=== PATIENT | female | born 1955 | race Caucasian/White ===

== ENCOUNTER 2016-11-03 13:44 | Inpatient (IN) | payer OTHER ==
[2016-11-03 13:54] VITALS: BMI 20.4
--- NOTE | 2016-11-03 14:49 | HP ---
CIWA Score - CIWA Score Nausea/Vomitin Muscle Tremors: 3 Anxiety: 3 Agitation: 3 Paroxysmal Sweats: 2 Orientation: 0-Oriented Tacttile Disturbances: 2-Mild Itch/Numbness/Burn Auditory Disturbances: 2-Mild Harshness/Frighten Visual Disturbances: 2-Mild Sensitivity Headache: 2-Mild CIWA-Ar Total Score: 22 Admission ROS BHS - HPI Chief Complaint: I NEED HELP TO STOP DRINKING ALCOHOL Allergies/Adverse Reactions: Allergies Allergy/AdvReac Type Severity Reaction Status Date / Time No Known Allergies Allergy Verified 11/03/16 14:12 History of Present Illness: THIS 61 YEARS OLD MALE WITH ALCOHOL DEPENDENCE,WITHDRAWAL SYMPTOM,,LAST DETOX 6 MONTHS AGO,UNKNOWN LOCATION SYNCOPE ALCOHOL RELATED HTN BIPOLAR DISORDER OLD CVA WEIGHT LOSS POSITIVE PPD NEED HELP TO STOP DRINKING Exam Limitations: No Limitations - Ebola screening Have you traveled outside of the country in the last 21 days: No (N) Have you had contact with anyone from an Ebola affected area: No Have you been sick,other than usual withdrawal symptoms: No Do you have a fever: No - Review of Systems Constitutional: Loss of Appetite, Malaise, Night Sweats, Changes in sleep, Weakness, Unintentional Wgt. Loss EENT: reports: Nose Congestion Respiratory: reports: No Symptoms reported Cardiac: reports: No Symptoms Reported GI: reports: Nausea, Vomiting, Indigestion, Abdominal cramping : reports: No Symptoms Reported Musculoskeletal: reports: Back Pain, Muscle Pain Integumentary: reports: Dryness Neuro: reports: Headache, Tremors Endocrine: reports: No Symptoms Reported Hematology: reports: No Symptoms Reported Psychiatric: reports: Depressed (BIPOLAR DISORDER) Patient History - Patient Medical History Hx Asthma: No Hx Chronic Obstructive Pulmonary Disease (COPD): No Hx Cancer: No Hx Cardiac Disorders: No Hx Hypertension: Yes (no meds.) Hx Pacemaker: No HX Cerebrovascular Accident: Yes (IN 2002) Hx Seizures: No Hx Dementia: No Hx Diabetes: No Hx Gastrointestinal Disorders: No Hx Liver Disease: No Hx Genitourinary Disorders: No Hx Sexually Transmitted Disorders: No Hx Renal Disease (ESRD): No Hx Hepatitis C: No Hx Depression: Yes (NO MED) Hx Suicide Attempt: No Hx Bipolar Disorder: Yes Hx Schizophrenia: No Other Medical History: NO SUICIDAL,NO HOMICIDAL - Patient Surgical History Past Surgical History: No - PPD History Previous Implant?: Yes Documented Results: Positive w/o proof Implanted On Prior R Admission?: No PPD to be Administered?: No - Reproductive History Patient is a Female of Child Bearing Age (11 -55 yrs old): No Patient : No - Smoking Cessation Smoking history: Current every day smoker Have you smoked in the past 12 months: Yes Aproximately how many cigarettes per day: 15 Hx Chewing Tobacco Use: No Initiated information on smoking cessation: Yes 'Breaking Loose' booklet given: 11/03/16 - Substance & Tx. History Hx Alcohol Use: Yes Hx Substance Use: No Substance Use Type: Alcohol Hx Substance Use Treatment: Yes (6MONTHS AGO DID NOT RECALL LOCATION) - Substances Abused Alcohol Route: Oral Frequency: Daily Amount used: 1 pint vodka Age of first use: 26 Date of Last Use: 11/02/16 Family Disease History - Family Disease History Family Disease History: Other: Father, Mother Admission Physical Exam [facility] - Vital Signs Vital Signs: Vital Signs - 24 hr 11/03/16 13:51 Temperature 97.1 F L Pulse Rate 79 Respiratory 18 Rate Blood Pressure 167/89 - Physical General Appearance: Yes: Moderate Distress, Irritable, Sweating, Anxious HEENTM: Yes: Nasal Congestion Respiratory: Yes: Lungs Clear Neck: Yes: Within Normal Limits Breast: Yes: Breast Exam Deferred Cardiology: Yes: Within Normal Limits, Regular Rhythm, Regular Rate, S1, S2 Abdominal: Yes: Within Normal Limits, Normal Bowel Sounds, Non Tender, Flat, Soft Genitourinary: Yes: Within Normal Limits Back: Yes: Muscle Spasm Musculoskeletal: Yes: Back pain, Muscle Pain Extremities: Yes: Tremors Neurological: Yes: apartment community manager II-XII NML intact, Fully Oriented, Alert, Motor Strength 5/5 Integumentary: Yes: Dry Lymphatic: Yes: Within Normal Limits - Diagnostic (1) Alcohol dependence with withdrawal, uncomplicated Current Visit: Yes Status: Acute (2) Syncope Current Visit: Yes Status: Acute (3) Old cerebrovascular accident without late effect Current Visit: Yes Status: Acute (4) Hypertension Current Visit: Yes Status: Acute (5) Weight loss Current Visit: Yes Status: Acute (6) Positive PPD Current Visit: Yes Status: Acute Cleared for Admission [facility] - Detox or Rehab [facility] Level of Care: Medically Managed Detox Regimen/Protocol: Librium [facility] Breath Alcohol Content Breath Alcohol Content: 0 Urine Pregancy Test - Result Urine Test Results: Negative- NO Line Present Urine Drug Screen - Results Drug Screen Negative: No Urine Drug Screen Results: TCA-Tricyclic Antidepress
[2016-11-03] MEDS ORDERED: guaiFENesin/D-METHORPHAN HB 10 ML UNIT-DOSE CUPS PO PRN (15:04)
[2016-11-03] MEDS ORDERED: ACETAMINOPHEN 325 MG TABLET (FP) PO PRN (15:04)
[2016-11-03] MEDS ORDERED: MENTHOL/PHENOL 1 EACH UD MM PRN (15:04)
[2016-11-03] MEDS ORDERED: LOPERAMIDE HCL 2 MG CAPSULE PO PRN (15:04)
[2016-11-03] MEDS ORDERED: chlordiazePOXIDE HCL 25 MG CAPSULE PO PRN (15:04)
[2016-11-03] MEDS ORDERED: diphenhydrAMINE HCL 50 MG CAPSULE PO PRN (15:04)
[2016-11-03] MEDS ORDERED: IBUPROFEN 400 MG TABLET (FP) PO PRN (15:04)
[2016-11-03] MEDS ORDERED: MAGNESIUM HYDROX 2400MG/30ML ORAL SUSPENSION 30 ML CUP PO PRN (15:04)
[2016-11-03] MEDS ORDERED: hydrOXYzine PAMOATE 25 MG CAPSULE (FP) PO PRN (15:04)
[2016-11-03] MEDS ORDERED: P-EPHED 60MG/TRIPROLIDI 2.5MG TABLET PO PRN (15:04)
[2016-11-03] MEDS ORDERED: MAGNESIUM CITRATE 300 ML BOTTLE PO PRN (15:04)
[2016-11-03] MEDS ORDERED: MAG HYDROX/AL HYDROX/SIMETH 30 ML UNIT-DOSE CUP PO PRN (15:04)
[2016-11-03] MEDS: chlordiazePOXIDE HCL 25 MG CAPSULE PO SCH ×2 (17:55→22:32)
[2016-11-03] MEDS: NICOTINE 21 MG/24 HOURS TOPICAL PATCH TD SCH (18:09)
[2016-11-03 18:50] LABS: URINE APPEARANCE CLOUDY; URINE BILIRUBIN NEGATIVE (NEGATIVE); URINE BLOOD NEGATIVE (NEGATIVE); URINE COLOR AMBER; URINE GLUCOSE (UA) NEGATIVE (NEGATIVE); URINE KETONE NEGATIVE (NEGATIVE); URINE LEUK ESTERASE NEGATIVE (NEGATIVE); URINE NITRITE NEGATIVE (NEGATIVE); URINE PROTEIN NEGATIVE (NEGATIVE); URINE UROBILINOGEN NEGATIVE E.U./dl (0.2-1.0)
[2016-11-03] MEDS: THIAMINE HCL 100 MG TABLET (FP) PO SCH (22:32)
[2016-11-04] MEDS: chlordiazePOXIDE HCL 25 MG CAPSULE PO SCH ×4 (06:07→22:25)
--- NOTE | 2016-11-04 07:54 | CONSULT ---
[facility] Psychiatric Consult - Data Date of interview: 11/04/16 Admission source: [facility] Identifying data: This is 61 years old german speaking female with no psychiatgric hospitalization history, multiple medical problems, intoxicated with : Alcohol and Nicotine Substance Abuse History: - Smoking Cessation. Smoking history: Current every day smoker. Have you smoked in the past 12 months: Yes. Aproximately how many cigarettes per day: 15. Hx Chewing Tobacco Use: No. Initiated information on smoking cessation: Yes. 'Breaking Loose' booklet given: 11/03/16. - Substance & Tx. History. Hx Alcohol Use: Yes. Hx Substance Use: No. Substance Use Type : Alcohol. Hx Substance Use Treatment: Yes (6MONTHS AGO DID NOT RECALL LOCATION ). - Substances Abused. Alcohol. Route: Oral. Frequency: Daily. Amount used: 1 pint vodka. Age of first use: 26. Date of Last Use: 11/02/16 Medical History: Weight loss history, history of PPD+, HTN, history of CVA, Syncope Psychiatric History: Patient reports no medicatiopons taking prior to admission , reports no past psychiatric history, reportsa insomnia Physical/Sexual Abuse/Trauma History: Denies Additional Comment: Observation. Detox Unit Care Protocol Mental Status Exam - Mental Status Exam Alert and Oriented to: Person Cognitive Function: Fair Patient Appearance: Unkempt Mood: Sad Affect: Flat Patient Behavior: Sedated Speech Pattern: Delayed Voice Loudness: Mildly Soft/Quiet Thought Process: Circumstantial Thought Disorder: Being Controlled Hallucinations: Denies Suicidal Ideation: Denies Homicidal Ideation: Denies Insight/Judgement: Fair Sleep: Difficulty falling asleep Appetite: Weight loss Muscle strength/Tone: Mild Hypotonicity Gait/Station: Shuffling Additional Comments: Observation. Detox Unit Care Protocol Psychiatric Findings - Problem List (Rosie 1, 2,3) (1) Alcohol dependence with withdrawal, uncomplicated Current Visit: Yes Status: Acute (2) Nicotine dependence Current Visit: Yes Status: Acute (3) Drug-induced mood disorder Current Visit: Yes Status: Suspected - Initial Treatment Plan Initial Treatment Plan: Observation. Detox Unit Care Protocol
[2016-11-04] MEDS ORDERED: PRENATAL VITAMINS W/ FOLIC ACID TABLET (FP) PO SCH (10:00)
[2016-11-04 10:08] LABS: MCH 33.7 pg (25.7-33.7); MCHC 33.8 g/dl (32.0-36.0); MEAN CELL VOLUME 99.7 fl (80-96); MEAN PLT VOLUME 9.8 fl (7.5-11.1); PLATELET COUNT 165 K/MM3 (134-434); RDW 13.1 % (11.6-15.6); WHITE BLOOD COUNT 6.8 K/mm3 (4.0-10.0)
[2016-11-04 10:26] LABS: ALBUMIN 3.3 g/dl (3.4-5.0); ALK PHOS 94 U/L (45-117); ANION GAP 7 (8-16); BILIRUBIN,TOTAL 0.7 mg/dL (0.2-1.0); CALCIUM 9.4 mg/dL (8.5-10.1); CO2 31 mmol/L (21-32); CREATININE 0.8 mg/dL (0.55-1.02); GLUCOSE,RANDOM 115 mg/dL (74-106); SGOT/AST 31 U/L (15-37); SGPT/ALT 31 U/L (12-78); TOT PROT 5.5 g/dl (6.4-8.2)
[2016-11-04] MEDS: NICOTINE 21 MG/24 HOURS TOPICAL PATCH TD SCH (10:32)
--- NOTE | 2016-11-04 11:32 | PN ---
[facility] CIWA - CIWA Score Nausea/Vomitin-No Nausea/No Vomiting Muscle Tremors: 3 Anxiety: 4-Mod. Anxious/Guarded Agitation: 3 Paroxysmal Sweats: 3 Orientation: 0-Oriented Tacttile Disturbances: 0-None Auditory Disturbances: 0-None Visual Disturbances: 0-None Headache: 1-Very Mild CIWA-Ar Total Score: 14 S Progress Note (SOAP) Subjective: tired sweats interrupted sleep headache Objective: 11/04/16 11:28 Vital Signs Temperature 97.3 F L 11/04/16 10:32 Pulse Rate 82 11/04/16 10:32 Respiratory Rate 18 11/04/16 10:32 Blood Pressure 158/85 11/04/16 10:32 O2 Sat by Pulse Oximetry (%) Laboratory Tests 11/03/16 11/04/16 11/04/16 17:45 06:30 06:30 WBC 6.8 RBC 4.04 Hgb 13.6 Hct 40.3 MCV 99.7 H MCHC 33.8 RDW 13.1 Plt Count 165 MPV 9.8 Sodium 141 Potassium 4.0 Chloride 103 Carbon Dioxide 31 Anion Gap 7 L BUN 17 Creatinine 0.8 Creat Clearance w eGFR > 60 Random Glucose 115 H Calcium 9.4 Total Bilirubin 0.7 AST 31 ALT 31 Alkaline Phosphatase 94 Total Protein 5.5 L Albumin 3.3 L Urine Color Mari Urine Appearance Cloudy Urine pH 8.0 Ur Specific [place] 1.018 Urine Protein Negative Urine Glucose (UA) Negative Urine Ketones Negative Urine Blood Negative Urine Nitrite Negative Urine Bilirubin Negative Urine Urobilinogen Negative Ur Leukocyte Esterase Negative RPR Titer 11/04/16 06:30 WBC RBC Hgb Hct MCV MCHC RDW Plt Count MPV Sodium Potassium Chloride Carbon Dioxide Anion Gap BUN Creatinine Creat Clearance w eGFR Random Glucose Calcium Total Bilirubin AST ALT Alkaline Phosphatase Total Protein Albumin Urine Color Urine Appearance Urine pH Ur Specific [place] Urine Protein Urine Glucose (UA) Urine Ketones Urine Blood Urine Nitrite Urine Bilirubin Urine Urobilinogen Ur Leukocyte Esterase RPR Titer Nonreactive awake/alert ambulating no acute distress Assessment: 11/04/16 11:31 withdrawal sx Plan: continue detox increase fluids
[2016-11-04] MEDS ORDERED: INFLUENZA VACCINE 45 MCG/0.5 ML (MDV 16-17) IM ONE (12:00)
[2016-11-04] MEDS: THIAMINE HCL 100 MG TABLET (FP) PO SCH (22:25)
[2016-11-05] MEDS: chlordiazePOXIDE HCL 25 MG CAPSULE PO SCH (06:35)
[2016-11-05 07:00] VITALS: BP 127/82; PULSE 66; TEMP 98.8
--- NOTE | 2016-11-05 09:37 | DS ---
[facility] Detox Discharge Summary Admission Date: 11/03/16 Discharge Date: 11/05/16 - History Present History: Alcohol Dependence - Physical Exam Results Vital Signs: Vital Signs Temperature 98.8 F 11/05/16 06:59 Pulse Rate 66 11/05/16 06:59 Respiratory Rate 16 11/05/16 06:59 Blood Pressure 127/82 11/05/16 06:59 O2 Sat by Pulse Oximetry (%) Pertinent Admission Physical Exam Findings: cxr - negative - Treatment Hospital Course: Detox Protocol Followed - Medication Discharge Medications: Ambulatory Orders NK [No Known Home Medication] 11/03/16 - Diagnosis (1) Alcohol dependence with withdrawal, uncomplicated Current Visit: Yes Status: Chronic (2) Hypertension Current Visit: Yes Status: Chronic Qualifiers: Hypertension type: essential hypertension Qualified Code(s): I10 - Essential (primary) hypertension (3) Nicotine dependence Current Visit: Yes Status: Chronic Qualifiers: Nicotine product type: cigarettes Substance use status: uncomplicated Qualified Code(s): F17.210 - Nicotine dependence, cigarettes, uncomplicated (4) Old cerebrovascular accident without late effect Current Visit: Yes Status: Acute (5) Positive PPD Current Visit: Yes Status: Chronic - AMA Did Patient Leave Against Medical Advice: Yes (pt wants to leave does'nt like it here.)
[2016-11-05] MEDS ORDERED: chlordiazePOXIDE 5 MG CAPSULE PO SCH (17:00)
--- NOTE | 2016-11-06 10:18 | EKG ---
Test Reason : Blood Pressure : / mmHG Vent. Rate : 077 BPM Atrial Rate : 077 BPM P-R Int : 162 ms QRS Dur : 072 ms QT Int : 392 ms P-R-T Axes : 062 047 013 degrees QTc Int : 443 ms NORMAL SINUS RHYTHM POSSIBLE LEFT ATRIAL ENLARGEMENT BORDERLINE ECG NO PREVIOUS ECGS AVAILABLE Confirmed by DI RUBIO, JARAD ([id number]) on 11/06/2016 10:17:34 AM Referred By: Confirmed By:JARAD SEVILLA MD
[2016-11-06] MEDS ORDERED: chlordiazePOXIDE HCL 10 MG CAPSULE PO SCH (17:00)
== END 2016-11-05 10:53 | disposition left against medical advice (07) | DRG 770 ==
LOC: YASAS 13:44 → Y6N 14:25
PROVIDERS: ADMIT Internal Medicine; ATTEND Internal Medicine
PROC: HZ2ZZZZ Detoxification Services for Substance Abuse Treatment (ICD-10-PCS; principal; 2016-11-03)
DX: F10.230 Alcohol dependence with withdrawal, uncomplicated (principal); F17.210 Nicotine dependence, cigarettes, uncomplicated; F19.24 Other psychoactive substance dependence with psychoactive substance-induced mood disorder; F31.9 Bipolar disorder, unspecified; I10 Essential (primary) hypertension; R76.11 Nonspecific reaction to tuberculin skin test without active tuberculosis; Z86.73 Personal history of transient ischemic attack (TIA), and cerebral infarction without residual deficits; Z87.898 Personal history of other specified conditions; Z86.79 Personal history of other diseases of the circulatory system
CPT/HCPCS: 36415; 71020-TC; 80053; 81003; 85027; 86593; 93005; 93010

== ENCOUNTER 2018-08-06 15:50 | Inpatient (IN) | payer OTHER ==
[2018-08-06 17:31] VITALS: BMI 18.6
--- NOTE | 2018-08-06 19:02 | HP ---
CIWA Score - CIWA Score Nausea/Vomitin-No Nausea/No Vomiting Muscle Tremors: None Anxiety: 0-No Anxiety, at Ease Agitation: 0-Normal Activity Paroxysmal Sweats: No Perspiration Orientation: 0-Oriented Tacttile Disturbances: 0-None Auditory Disturbances: 0-None Visual Disturbances: 0-None Headache: 0-None Present CIWA-Ar Total Score: 0 Admission ROS BHS - HPI Allergies/Adverse Reactions: Allergies Allergy/AdvReac Type Severity Reaction Status Date / Time No Known Allergies Allergy Verified 11/03/16 14:12 History of Present Illness: pt here requesting detox from etoh use , claims several pints/ day , starts drinking at 10 am , latest use this morning , + tremors if not drinking , denies seizures, blackouts, + falls, latest 2 d ago hit knees . reports use of etoh x > 30 years, states she was referred by social worker assistant at [facility] to this program. utox neg for all juan pablo 0.000 Bp 158/84 pmhx : denies pshx : denies psych : denies tobacco use : 15 /day , requesting nrt w/ patch - Ebola screening Have you traveled outside of the country in the last 21 days: No (N) Have you had contact with anyone from an Ebola affected area: No Have you been sick,other than usual withdrawal symptoms: No Do you have a fever: No - Review of Systems Constitutional: No Symptoms Reported EENT: reports: Other (glasses - reading dentures) Respiratory: reports: No Symptoms reported Cardiac: reports: No Symptoms Reported GI: reports: No Symptoms Reported : reports: No Symptoms Reported Musculoskeletal: reports: No Symptoms Reported Integumentary: reports: Bruising, Other (michael knees abrasions) Neuro: reports: No Symptoms reported Endocrine: reports: No Symptoms Reported Hematology: reports: No Symptoms Reported Psychiatric: reports: Judgement Intact, Orientated x3 Other Systems: Reviewed and Negative Patient History - Patient Medical History Hx Asthma: No Hx Chronic Obstructive Pulmonary Disease (COPD): No Hx Cancer: No Hx Cardiac Disorders: No Hx Hypertension: Yes (no meds.) Hx Pacemaker: No HX Cerebrovascular Accident: Yes (IN 2002) Hx Seizures: No Hx Dementia: No Hx Diabetes: No Hx Gastrointestinal Disorders: No Hx Liver Disease: No Hx Genitourinary Disorders: No Hx Sexually Transmitted Disorders: No Hx Renal Disease (ESRD): No Hx Thyroid Disease: No Hx Human Immunodeficiency Virus (HIV): No (last 2012 negative) Hx Hepatitis C: No Hx Depression: Yes (NO MED) Hx Suicide Attempt: No Hx Bipolar Disorder: No Hx Schizophrenia: No - Patient Surgical History Past Surgical History: No - Smoking Cessation Smoking history: Current every day smoker Have you smoked in the past 12 months: Yes Aproximately how many cigarettes per day: 15 Hx Chewing Tobacco Use: No Initiated information on smoking cessation: No Family Disease History - Family Disease History Family Disease History: Other: Father (alcohol,), Mother (alcohol) Admission Physical Exam S - Vital Signs Vital Signs: Vital Signs - 24 hr 08/06/18 17:29 Temperature 98.9 F Pulse Rate 87 Respiratory 20 Rate Blood Pressure 155/86 - Physical General Appearance: Yes: Within Normal Limits, No Apparent Distress, Nourished, Disheveled HEENTM: Yes: Within Normal Limits, Hearing grossly Normal, Normocephalic, Normal Voice, SHERI, Pharynx Normal, Other (missing teeth) Respiratory: Yes: Chest Non-Tender, Lungs Clear, Normal Breath Sounds, No Respiratory Distress, No Accessory Muscle Use Neck: Yes: No masses,lesions,Nodules, Trachea in good position Cardiology: Yes: Within Normal Limits, Regular Rhythm, Regular Rate Abdominal: Yes: Within Normal Limits, Normal Bowel Sounds, Non Tender, Flat, Soft Back: Yes: Normal Inspection Musculoskeletal: Yes: full range of Motion, Gait Steady, Pelvis Stable Extremities: Yes: Normal Capillary Refill, Normal Inspection, Normal Range of Motion, Non-Tender Neurological: Yes: Within Normal Limits, Fully Oriented, Alert, Motor Strength 5 /5, Normal Mood/Affect, Normal Response Integumentary: Yes: Normal Color, Dry, Warm, Other (knees) - Diagnostic (1) Alcohol dependence with intoxication Current Visit: No Status: Acute Qualifiers: Complication of substance-induced condition: uncomplicated Qualified Code(s ): F10.220 - Alcohol dependence with intoxication, uncomplicated (2) Nicotine dependence Current Visit: No Status: Chronic Qualifiers: Nicotine product type: cigarettes Substance use status: uncomplicated Qualified Code(s): F17.210 - Nicotine dependence, cigarettes, uncomplicated BHS Breath Alcohol Content Breath Alcohol Content: 0 Urine Pregancy Test - Result Urine Test Results: Negative- NO Line Present Urine Drug Screen - Results Drug Screen Negative: Yes
[2018-08-06] MEDS ORDERED: MENTHOL/PHENOL 1 EACH UD MM PRN (19:06)
[2018-08-06] MEDS ORDERED: MAGNESIUM CITRATE 300 ML BOTTLE PO PRN (19:06)
[2018-08-06] MEDS ORDERED: diazePAM 5 MG TABLET PO PRN (19:06)
[2018-08-06] MEDS ORDERED: P-EPHED 60MG/TRIPROLIDI 2.5MG TABLET PO PRN (19:06)
[2018-08-06] MEDS ORDERED: MAG HYDROX/AL HYDROX/SIMETH 30 ML UNIT-DOSE CUP PO PRN (19:06)
[2018-08-06] MEDS ORDERED: IBUPROFEN 400 MG TABLET (FP) PO PRN (19:06)
[2018-08-06] MEDS ORDERED: MAGNESIUM HYDROX 2400MG/30ML ORAL SUSPENSION 30 ML CUP PO PRN (19:06)
[2018-08-06] MEDS ORDERED: ACETAMINOPHEN 325 MG TABLET (FP) PO PRN (19:06)
[2018-08-06] MEDS ORDERED: guaiFENesin/D-METHORPHAN HB 10 ML UNIT-DOSE CUPS PO PRN (19:06)
[2018-08-06] MEDS: THIAMINE HCL 100 MG TABLET (FP) PO SCH (21:17)
[2018-08-06] MEDS: diazePAM 5 MG TABLET PO SCH (21:17)
[2018-08-07] MEDS: diazePAM 5 MG TABLET PO SCH ×3 (06:31→22:52)
[2018-08-07 09:58] LABS: HEMATOCRIT 40.4 % (32.4-45.2); HEMOGLOBIN 13.3 GM/dL (10.7-15.3); MCH 32.2 pg (25.7-33.7); MCHC 32.9 g/dl (32.0-36.0); MEAN PLT VOLUME 10.1 fl (7.5-11.1); PLATELET COUNT 153 K/MM3 (134-434); RBC 4.12 M/mm3 (3.60-5.2); RDW 14.1 % (11.6-15.6); WHITE BLOOD COUNT 5.7 K/mm3 (4.0-10.0)
[2018-08-07] MEDS: NICOTINE 7 MG/24 HOURS TOPICAL PATCH TD SCH (10:30)
[2018-08-07] MEDS: PRENATAL VITAMINS W/ FOLIC ACID TABLET (FP) PO SCH (10:30)
[2018-08-07 11:00] LABS: ALBUMIN 3.3 g/dl (3.4-5.0); ALK PHOS 79 U/L (45-117); ANION GAP 7 MMOL/L (8-16); BILIRUBIN,TOTAL 0.6 mg/dL (0.2-1); BLOOD UREA NITROGEN 20 mg/dL (7-18); CALCIUM 9.2 mg/dL (8.5-10.1); CHLORIDE 106 mmol/L (98-107); CO2 29 mmol/L (21-32); CREATININE 0.6 mg/dL (0.55-1.3); GLUCOSE,RANDOM 122 mg/dL (74-106); POTASSIUM 3.7 mmol/L (3.5-5.1); SGOT/AST 31 U/L (15-37); SGPT/ALT 37 U/L (13-61); SODIUM 142 mmol/L (136-145); TOT PROT 5.4 g/dl (6.4-8.2)
--- NOTE | 2018-08-07 12:22 | PN ---
S CIWA - CIWA Score Nausea/Vomitin-No Nausea/No Vomiting Muscle Tremors: 4-Moderate,w/Arms Extend Anxiety: 3 Agitation: 4-Moderately Restless Paroxysmal Sweats: 3 Orientation: 0-Oriented Tacttile Disturbances: 0-None Auditory Disturbances: 0-None Visual Disturbances: 0-None Headache: 0-None Present CIWA-Ar Total Score: 14 BHS Progress Note (SOAP) Subjective: sweats shakes interrupted sleep body aches Objective: 08/07/18 12:17 Vital Signs Temperature 97.5 F L 08/07/18 10:00 Pulse Rate 63 08/07/18 10:00 Respiratory Rate 16 08/07/18 10:00 Blood Pressure 154/97 08/07/18 10:00 O2 Sat by Pulse Oximetry (%) Laboratory Tests 08/07/18 08/07/18 08/07/18 07:00 07:00 07:00 WBC 5.7 RBC 4.12 Hgb 13.3 Hct 40.4 MCV 98.0 H MCH 32.2 MCHC 32.9 RDW 14.1 Plt Count 153 MPV 10.1 Sodium 142 Potassium 3.7 Chloride 106 Carbon Dioxide 29 Anion Gap 7 L BUN 20 H Creatinine 0.6 Creat Clearance w eGFR > 60 Random Glucose 122 H Calcium 9.2 Total Bilirubin 0.6 AST 31 ALT 37 Alkaline Phosphatase 79 Total Protein 5.4 L Albumin 3.3 L RPR Titer Nonreactive rest of labs pending aaox3 ambulating no acute distress Assessment: 08/07/18 12:17 withdrawal sx Plan: continue detox increase fluids
[2018-08-07 21:13] LABS: URINE APPEARANCE CLEAR; URINE BILIRUBIN NEGATIVE (<2.0 mg/dL); URINE COLOR LTYELLOW; URINE GLUCOSE (UA) NEGATIVE (NEGATIVE); URINE KETONE NEGATIVE (NEGATIVE); URINE LEUK ESTERASE NEGATIVE (NEGATIVE); URINE NITRITE NEGATIVE (NEGATIVE); URINE PROTEIN NEGATIVE (NEGATIVE); URINE UROBILINOGEN NEGATIVE mg/dL (0.2-1.0)
[2018-08-07] MEDS: THIAMINE HCL 100 MG TABLET (FP) PO SCH (22:52)
[2018-08-08] MEDS: PRENATAL VITAMINS W/ FOLIC ACID TABLET (FP) PO SCH (11:11)
[2018-08-08] MEDS: diazePAM 5 MG TABLET PO SCH ×2 (11:12→22:27)
[2018-08-08] MEDS: NICOTINE 7 MG/24 HOURS TOPICAL PATCH TD SCH (11:12)
--- NOTE | 2018-08-08 15:22 | PN ---
S CIWA - CIWA Score Nausea/Vomitin-No Nausea/No Vomiting Muscle Tremors: 2 Anxiety: 3 Agitation: 3 Paroxysmal Sweats: 2 Orientation: 0-Oriented Tacttile Disturbances: 1-Very Mild Itch/Numbness Auditory Disturbances: 0-None Visual Disturbances: 1-Very Mild Sensitivity Headache: 1-Very Mild CIWA-Ar Total Score: 13 S Progress Note (SOAP) Subjective: irritable sweats shakes interrupted sleep body aches Objective: 08/08/18 15:22 Vital Signs Temperature 99.0 F 08/08/18 15:07 Pulse Rate 88 08/08/18 15:07 Respiratory Rate 16 08/08/18 15:07 Blood Pressure 100/56 L 08/08/18 15:07 O2 Sat by Pulse Oximetry (%) Laboratory Last Values WBC 5.7 K/mm3 (4.0-10.0) 08/07/18 07:00 RBC 4.12 M/mm3 (3.60-5.2) 08/07/18 07:00 Hgb 13.3 GM/dL (10.7-15.3) 08/07/18 07:00 Hct 40.4 % (32.4-45.2) 08/07/18 07:00 MCV 98.0 fl (80-96) H 08/07/18 07:00 MCH 32.2 pg (25.7-33.7) 08/07/18 07:00 MCHC 32.9 g/dl (32.0-36.0) 08/07/18 07:00 RDW 14.1 % (11.6-15.6) 08/07/18 07:00 Plt Count 153 K/MM3 (134-434) 08/07/18 07:00 MPV 10.1 fl (7.5-11.1) 08/07/18 07:00 Sodium 142 mmol/L (136-145) 08/07/18 07:00 Potassium 3.7 mmol/L (3.5-5.1) 08/07/18 07:00 Chloride 106 mmol/L (98-107) 08/07/18 07:00 Carbon Dioxide 29 mmol/L (21-32) 08/07/18 07:00 Anion Gap 7 MMOL/L (8-16) L 08/07/18 07:00 BUN 20 mg/dL (7-18) H 08/07/18 07:00 Creatinine 0.6 mg/dL (0.55-1.3) 08/07/18 07:00 Creat Clearance w eGFR > 60 (>60) 08/07/18 07:00 Random Glucose 122 mg/dL (74-106) H 08/07/18 07:00 Calcium 9.2 mg/dL (8.5-10.1) 08/07/18 07:00 Total Bilirubin 0.6 mg/dL (0.2-1) 08/07/18 07:00 AST 31 U/L (15-37) 08/07/18 07:00 ALT 37 U/L (13-61) 08/07/18 07:00 Alkaline Phosphatase 79 U/L (45-117) 08/07/18 07:00 Total Protein 5.4 g/dl (6.4-8.2) L 08/07/18 07:00 Albumin 3.3 g/dl (3.4-5.0) L 08/07/18 07:00 Urine Color Ltyellow 08/07/18 14:15 Urine Appearance Clear 08/07/18 14:15 Urine pH 7.0 (5.0-8.0) 08/07/18 14:15 Ur Specific [place] 1.011 (1.010-1.035) 08/07/18 14:15 Urine Protein Negative (NEGATIVE) 08/07/18 14:15 Urine Glucose (UA) Negative (NEGATIVE) 08/07/18 14:15 Urine Ketones Negative (NEGATIVE) 08/07/18 14:15 Urine Blood Negative (NEGATIVE) 08/07/18 14:15 Urine Nitrite Negative (NEGATIVE) 08/07/18 14:15 Urine Bilirubin Negative (<2.0 mg/dL) 08/07/18 14:15 Urine Urobilinogen Negative mg/dL (0.2-1.0) 08/07/18 14:15 Ur Leukocyte Esterase Negative (NEGATIVE) 08/07/18 14:15 RPR Titer Nonreactive (NONREACTIVE) 08/07/18 07:00 Assessment: 08/08/18 15:22 withdrawal sx Plan: increase fluids continue to monitor
[2018-08-08] MEDS: THIAMINE HCL 100 MG TABLET (FP) PO SCH (22:27)
[2018-08-08] MEDS: MELATONIN 5 MG TABLETS PO PRN (22:27)
[2018-08-09] MEDS: NICOTINE 7 MG/24 HOURS TOPICAL PATCH TD SCH (10:18)
[2018-08-09] MEDS: diazePAM 5 MG TABLET PO SCH ×2 (10:18→22:37)
[2018-08-09] MEDS: PRENATAL VITAMINS W/ FOLIC ACID TABLET (FP) PO SCH (10:18)
--- NOTE | 2018-08-09 16:35 | PN ---
BHS Progress Note (SOAP) Subjective: feeling better no tremor less sweat sleep better at night Objective: 08/09/18 16:34 Vital Signs Temperature 97.1 F L 08/09/18 14:36 Pulse Rate 77 08/09/18 14:36 Respiratory Rate 18 08/09/18 14:36 Blood Pressure 109/56 L 08/09/18 14:36 O2 Sat by Pulse Oximetry (%) Laboratory Last Values WBC 5.7 K/mm3 (4.0-10.0) 08/07/18 07:00 RBC 4.12 M/mm3 (3.60-5.2) 08/07/18 07:00 Hgb 13.3 GM/dL (10.7-15.3) 08/07/18 07:00 Hct 40.4 % (32.4-45.2) 08/07/18 07:00 MCV 98.0 fl (80-96) H 08/07/18 07:00 MCH 32.2 pg (25.7-33.7) 08/07/18 07:00 MCHC 32.9 g/dl (32.0-36.0) 08/07/18 07:00 RDW 14.1 % (11.6-15.6) 08/07/18 07:00 Plt Count 153 K/MM3 (134-434) 08/07/18 07:00 MPV 10.1 fl (7.5-11.1) 08/07/18 07:00 Sodium 142 mmol/L (136-145) 08/07/18 07:00 Potassium 3.7 mmol/L (3.5-5.1) 08/07/18 07:00 Chloride 106 mmol/L (98-107) 08/07/18 07:00 Carbon Dioxide 29 mmol/L (21-32) 08/07/18 07:00 Anion Gap 7 MMOL/L (8-16) L 08/07/18 07:00 BUN 20 mg/dL (7-18) H 08/07/18 07:00 Creatinine 0.6 mg/dL (0.55-1.3) 08/07/18 07:00 Creat Clearance w eGFR > 60 (>60) 08/07/18 07:00 Random Glucose 122 mg/dL (74-106) H 08/07/18 07:00 Calcium 9.2 mg/dL (8.5-10.1) 08/07/18 07:00 Total Bilirubin 0.6 mg/dL (0.2-1) 08/07/18 07:00 AST 31 U/L (15-37) 08/07/18 07:00 ALT 37 U/L (13-61) 08/07/18 07:00 Alkaline Phosphatase 79 U/L (45-117) 08/07/18 07:00 Total Protein 5.4 g/dl (6.4-8.2) L 08/07/18 07:00 Albumin 3.3 g/dl (3.4-5.0) L 08/07/18 07:00 Urine Color Ltyellow 08/07/18 14:15 Urine Appearance Clear 08/07/18 14:15 Urine pH 7.0 (5.0-8.0) 08/07/18 14:15 Ur Specific [place] 1.011 (1.010-1.035) 08/07/18 14:15 Urine Protein Negative (NEGATIVE) 08/07/18 14:15 Urine Glucose (UA) Negative (NEGATIVE) 08/07/18 14:15 Urine Ketones Negative (NEGATIVE) 08/07/18 14:15 Urine Blood Negative (NEGATIVE) 08/07/18 14:15 Urine Nitrite Negative (NEGATIVE) 08/07/18 14:15 Urine Bilirubin Negative (<2.0 mg/dL) 08/07/18 14:15 Urine Urobilinogen Negative mg/dL (0.2-1.0) 08/07/18 14:15 Ur Leukocyte Esterase Negative (NEGATIVE) 08/07/18 14:15 RPR Titer Nonreactive (NONREACTIVE) 08/07/18 07:00 lab noted Assessment: 08/09/18 16:35 mild withdrawal sx Plan: medically supervised detox
[2018-08-09] MEDS: MELATONIN 5 MG TABLETS PO PRN (22:37)
[2018-08-09] MEDS: THIAMINE HCL 100 MG TABLET (FP) PO SCH (22:37)
--- NOTE | 2018-08-10 08:41 | DS ---
[facility] Detox Discharge Summary Admission Date: 08/06/18 Discharge Date: 08/10/18 - History Present History: Alcohol Dependence - Physical Exam Results Vital Signs: Vital Signs Temperature 96.8 F L 08/10/18 06:00 Pulse Rate 57 L 08/10/18 06:00 Respiratory Rate 16 08/10/18 06:00 Blood Pressure 141/69 08/10/18 06:00 O2 Sat by Pulse Oximetry (%) - Treatment Hospital Course: Detox Protocol Followed, Detoxed Safely, Responded well, Discharged Condition Good, Rehab Referral Accepted - Medication Discharge Medications: Ambulatory Orders NK [No Known Home Medication] 11/03/16 - AMA Did Patient Leave Against Medical Advice: No (referred to [facility])
[2018-08-10] MEDS: NICOTINE 7 MG/24 HOURS TOPICAL PATCH TD SCH (09:08)
[2018-08-10] MEDS: PRENATAL VITAMINS W/ FOLIC ACID TABLET (FP) PO SCH (09:10)
[2018-08-10 09:14] VITALS: BP 149/76; PULSE 59; TEMP 97.9
[2018-08-10] MEDS ORDERED: diazePAM 5 MG TABLET PO SCH (10:00)
== END 2018-08-10 09:45 | disposition home or self-care (01) | DRG 775 ==
LOC: YASAS 15:50 → Y6N 19:07
PROC: HZ2ZZZZ Detoxification Services for Substance Abuse Treatment (ICD-10-PCS; principal; 2018-08-06)
DX: F10.230 Alcohol dependence with withdrawal, uncomplicated (principal); F17.210 Nicotine dependence, cigarettes, uncomplicated; I10 Essential (primary) hypertension; Z86.73 Personal history of transient ischemic attack (TIA), and cerebral infarction without residual deficits; Z87.898 Personal history of other specified conditions
CPT/HCPCS: 36415; 80053; 81003; 85027; 86593